=== PATIENT | female | born 1945 | race Caucasian/White ===

== ENCOUNTER 2023-03-13 18:19 | Emergency (ER) | payer MEDICARE ==
[~2023-03-13] VITALS: Ht 157.5 cm; Wt 70.3 kg
[2023-03-13 18:20] VITALS: BP_SYST 116
--- NOTE | 2023-03-13 18:25 | NUR ---
PT TRIAGED AND PLACED IN HALLWAY BED AND WILL ASSUME CARE
--- NOTE | 2023-03-13 18:35 | NUR ---
DR RAMOS AT BEDSIDE FOR EVALUATION
[2023-03-13] MEDS ORDERED: PENICILLIN V POTASSIUM 250 MG TABLET PO ONE (18:45)
[2023-03-13] MEDS ORDERED: methylPREDNISolone SOD SUCC/PF 62.5 MG/ML VIAL IM ONE (18:45)
[2023-03-13] MEDS ORDERED: IPRATROPIUM/ALBUTEROL SULFATE 3 ML AMPUL.NEB (DUONEB) INH ONE ×2 (18:45→21:00)
--- NOTE | 2023-03-13 18:55 | NUR ---
RT AT BEDSIDE FOR EVALUATION AND TREATMENT
--- NOTE | 2023-03-13 19:52 | NUR ---
report given to alexis burrows for continuity of care
--- NOTE | 2023-03-13 19:58 | NUR ---
FIRST CONTACT WITH PT. SHE IS C/O OF LEFT ARM PAIN FROM INJECTION SHE RECEIVED EARLIER. MD INFORMED AND ORDER FOR PAIN MED GIVEN.
[2023-03-13] MEDS ORDERED: IBUPROFEN 800 MG TABLET PO ONE (20:00)
[2023-03-13] MEDS ORDERED: ALBU90AE INH (21:04)
[2023-03-13] MEDS ORDERED: GUAI5SYR PO (21:04)
[2023-03-13] MEDS ORDERED: PRED20TA PO (21:04)
--- NOTE | 2023-03-13 21:20 | NUR ---
Patient given written and verbal discharge instructions and verbalizes understanding. ER MD RAMOS discussed with patient the results and treatment provided. Patient in stable condition. ID arm band removed. IV catheter removed intact and dressing applied, no active bleeding. Rx of PREDNISONE, PRO AIR AND ROBITISSIN given. Patient educated on pain management and to follow up with PMD. Pain Scale . Opportunity for questions provided and answered. Medication side effect fact sheet provided.
[2023-03-13 21:22] VITALS: BP_SYST 132
== END 2023-03-13 21:23 | disposition home or self-care (01) ==
LOC: SED 18:19
DX: R06.02 Shortness of breath (principal); R05.9 Cough, unspecified; Z88.1 Allergy status to other antibiotic agents; Z79.899 Other long term (current) drug therapy; Z20.822 Contact with and (suspected) exposure to COVID-19
CPT/HCPCS: 99284; 71045; 87426; 87420; 36415; 96372; 87804 ×2; J2930